=== PATIENT | male | born 1965 | race Caucasian/White ===

== ENCOUNTER 2019-01-12 10:17 | Observation (INO) ==
[2019-01-12] MEDS ORDERED: Isovue-370 500 ML BOTTLE IVP ONE (10:54)
[2019-01-12] MEDS ORDERED: *HR* FentaNYL (PF) 100 MCG/2 ML VIAL IVP ONE (10:55)
[2019-01-12] MEDS ORDERED: Ondansetron 4 MG/2 ML VIAL IVP ONE (10:55)
[2019-01-12 11:38] LABS: Basophils # 0.1 K/mcL (0.0-0.2); Basophils % 1.1 %; Eosinophils # 0.3 K/mcL (0.0-0.6); Eosinophils % 3.9 %; Hematocrit 50.1 % (37.5-50.1); Hemoglobin 15.9 g/dL (12.9-16.9); Immature Granulocytes % 0.3 % (0-4); Lymphocytes # 2.1 K/mcL (0.6-4.6); Lymphocytes % 33.4 %; Mean Corpuscular HGB Conc 31.7 g/dL (31.6-35.5); Mean Corpuscular Hemoglobin 27.8 pg (28.0-33.3); Mean Corpuscular Volume 87.6 fL (83.0-100.0); Mean Platelet Volume 11.1 fL (9.4-12.4); Monocytes # 0.7 K/mcL (0.0-1.3); Monocytes % 11.6 %; Neutrophils # 3.2 K/mcL (1.6-8.9); Platelet Count 154 K/mcL (140-400); Red Blood Count 5.72 M/mcL (4.19-5.50); Red Cell Distribution Width 14.5 % (11.5-14.5); Segmented Neutrophils % 49.7 %
[2019-01-12 12:00] LABS: Alanine Aminotransferase 80 Units/L (7-52); Alkaline Phosphatase 132 Units/L (34-104); Aspartate Amino Transferase 109 Units/L (13-39); BUN/Creatinine Ratio 14 (6-26); Bilirubin,Direct 0.1 mg/dL (0.0-0.2); Bilirubin,Indirect 0.3 mg/dL (0.0-1.2); Bilirubin,Total 0.4 mg/dL (0.3-1.0); Blood Urea Nitrogen 11 mg/dL (6-20); Calcium 9.4 mg/dL (8.6-10.3); Carbon Dioxide 29 mEq/L (23-29); Chloride 100 mEq/L (98-107); Glucose 98 mg/dL (70-105); Osmolality,Calculated 277 (280-300); Potassium 4.8 mEq/L (3.5-5.1); Sodium 134 mEq/L (136-145); Troponin I < 0.03 ng/mL (< 0.04); eGFR For Non-African Americans > 60 (> 60)
[2019-01-12] MEDS ORDERED: Ketorolac 15 MG/ML VIAL IVP ONE ×2 (12:01→16:48)
[2019-01-12 12:28] LABS: Lipase 19 Units/L (11-82)
[2019-01-12 12:57] LABS: Bilirubin,Urine Negative (Negative); Blood,Urine Negative (Negative); Clarity,Urine Clear (Clear); Color,Urine Yellow (Yellow); Glucose,Urine (UA) Normal (Normal); Ketones,Urine Negative (Negative); Leukocyte Esterase,Urine Negative (Negative); Nitrite,Urine Negative (Negative); PH,Urine 6.5 pH Units (5.0-8.0); Protein,Urine Negative (Neg-Trace); Specific Gravity,Urine < 1.005 (1.010-1.025); Urobilinogen,Urine Normal (Normal)
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
[2019-01-12] MEDS ORDERED: Ondansetron 4 MG/2 ML VIAL IVP PRN (16:48)
[2019-01-12] MEDS ORDERED: cefOXitin 2,000 MG in Water for inj. (sterile) 20 ML 20 ML IVP SCH (17:00)
[2019-01-12] MEDS: 0.9 % Sodium Chloride 1,000 ML IVC SCH (17:19)
[2019-01-12] MEDS: *HR* Heparin 5,000 UNIT/ML VIAL SQ SCH (17:20)
--- NOTE | 2019-01-12 17:40 | Emergency Department Note ---
Disposition Clinical Impression: Acute cholecystitis without calculus Disposition: Admitted As Inpatient Condition: Fair Time of Disposition: 16:30 General Adult HPI - General Chief complaint: ED Abdominal Pain Stated complaint: abd pain Time Seen by Provider: 01/12/19 10:25 Source: patient, family Limitations: no limitations Nursing Notes Reviewed: Yes Vital Signs Reviewed: Yes - History of Present Illness HPI Narrative: 53-year-old male presents emergency Department with concerns of pain in the right upper quadrant. Patient states pain woke him from sleep at 3 AM and has persisted since that time. Patient denies fever, trauma, illicit drug use. He has a history of IV drug use and hepatitis C. The pain is described as sharp, aching in the right upper quadrant that does not radiate. He feels like there is a "large ball in his right upper quadrant". Pain Scale: 0 - Related Data Home Medications Medication Instructions Recorded Confirmed Buprenorphine HCl/Naloxone HCl 1 each SL DAILY 01/12/19 01/12/19 [Suboxone 8 mg-2 mg Sl Film] Allergies Allergy/AdvReac Type Severity Reaction Status Date / Time No Known Allergies Allergy Verified 02/26/18 18:49 All systems ED: reviewed and negative except as stated. Review of Systems: As Per HPI Past Medical History - Past Medical History Attestation: Yes The following information was validated with the patient. Source: patient Medical history: Reports: hepatitis Surgical history: Reports: other Psychiatric history: Reports: anxiety, depression - Social History Smoking Status: Current every day smoker Smokeless Tobacco Status: No Alcohol use: Reports: none Drug use: Reports: marijuana, other Physical Exam General: Alert and in no acute distress Skin: Warm, dry, intact Head: Normocephalic and atraumatic Neck: Supple, trachea midline and no tenderness Cardiovascular: RRR, no murmur, normal perfusion Respiratory: CTAB, no wheezing, cough, or respiratory distress Musculoskeletal: Normal strength, no tenderness, swelling or deformity GI: Soft, tenderness to palpation of the right upper quadrant without evidence of rigidity, guarding, rebound. nondistended. Bowel sounds present Neuro: A&O to person, place, time and situation. No focal deficits noted on exam Psychiatric: cooperative and appropriate mood and affect. - General Limitations: no limitations General appearance: alert, in no apparent distress Course Vital Signs Temperature 97.6 F 01/12/19 10:24 Pulse Rate 59 01/12/19 10:24 Respiratory Rate 14 01/12/19 10:24 Blood Pressure 137/90 01/12/19 10:24 O2 Sat by Pulse Oximetry 97 01/12/19 10:24 Temperature 97.6 F 01/12/19 10:47 Pulse Rate 58 01/12/19 15:02 Respiratory Rate 16 01/12/19 16:35 Blood Pressure 105/54 01/12/19 16:35 O2 Sat by Pulse Oximetry 95 01/12/19 15:02 Oxygen Delivery Oxygen Delivery Room Air Medical Decision Making - MDM Narrative Medical decision making narrative: CT showed significant thickening of the gallbladder wall and dilatation of the intrahepatic and extrahepatic biliary ducts. There is also question lesion of the pancreatic head which was concerning for malignancy. Patient was informed of the CT results. I contacted the surgeon, Dr. Aguila who evaluated the patient at bedside. Dr. Aguila recommended that symptoms are likely secondary to acute cholecystitis and he would require surgery. Patient drank coffee in the emergency department despite being told to be nothing by mouth. He will likely require surgery in the a.m. - Medical Records Medical records reviewed: Yes I reviewed the patient's medical records. - Lab Data Lab results reviewed: Yes I reviewed the patient's lab results. Result diagrams: 01/12/19 11:27 01/12/19 11:27 Lab Results 01/12/19 01/12/19 01/12/19 Range/Units 11:27 11:27 11:27 WBC 6.4 (4.3-11.1) K/mcL RBC 5.72 H (4.19-5.50) M/mcL Hgb 15.9 (12.9-16.9) g/dL Hct 50.1 (37.5-50.1) % MCV 87.6 (83.0-100.0) fL MCH 27.8 L (28.0-33.3) pg MCHC 31.7 (31.6-35.5) g/dL RDW 14.5 (11.5-14.5) % Plt Count 154 (140-400) K/mcL MPV 11.1 (9.4-12.4) fL Immature Gran % 0.3 (0-4) % Seg Neutrophils % 49.7 % Lymphocytes % 33.4 % Monocytes % 11.6 % Eosinophils % 3.9 % Basophils % 1.1 % Neutrophils # 3.2 (1.6-8.9) K/mcL Lymphocytes # 2.1 (0.6-4.6) K/mcL Monocytes # 0.7 (0.0-1.3) K/mcL Eosinophils # 0.3 (0.0-0.6) K/mcL Basophils # 0.1 (0.0-0.2) K/mcL Sodium 134 L (136-145) mEq/L Potassium 4.8 (3.5-5.1) mEq/L Chloride 100 (98-107) mEq/L Carbon Dioxide 29 (23-29) mEq/L BUN 11 (6-20) mg/dL Creatinine 0.78 (0.70-1.30) mg/dL Est GFR ( Amer) > 60 (> 60) Est GFR (Non-Af Amer) > 60 (> 60) BUN/Creatinine Ratio 14 (6-26) Glucose 98 (70-105) mg/dL Calculated Osmolality 277 L (280-300) Lactic Acid 0.7 (0.5-2.2) mmol/L Calcium 9.4 (8.6-10.3) mg/dL Total Bilirubin 0.4 (0.3-1.0) mg/dL Direct Bilirubin 0.1 (0.0-0.2) mg/dL Indirect Bilirubin 0.3 (0.0-1.2) mg/dL AST 109 H (13-39) Units/L ALT 80 H (7-52) Units/L Alkaline Phosphatase 132 H (34-104) Units/L Troponin I < 0.03 (< 0.04) ng/mL Serum Total Protein 8.0 (6.4-8.9) g/dL Albumin 4.0 (3.5-5.7) g/dL Globulin 4.0 H (2.4-3.5) g/dL Albumin/Globulin Ratio 1.0 L (1.1-2.2) Lipase 19 (11-82) Units/L Urine Color (Yellow) Urine Clarity (Clear) Urine pH (5.0-8.0) pH Units Ur Specific [place] (1.010-1.025) Urine Protein (Neg-Trace) mg/dL Urine Glucose (UA) (Normal) mg/dL Urine Ketones (Negative) mg/dL Urine Blood (Negative) Urine Nitrite (Negative) Urine Bilirubin (Negative) Urine Urobilinogen (Normal) mg/dL Ur Leukocyte Esterase (Negative) Ur Culture Indicated? (NO) 01/12/19 Range/Units 12:45 WBC (4.3-11.1) K/mcL RBC (4.19-5.50) M/mcL Hgb (12.9-16.9) g/dL Hct (37.5-50.1) % MCV (83.0-100.0) fL MCH (28.0-33.3) pg MCHC (31.6-35.5) g/dL RDW (11.5-14.5) % Plt Count (140-400) K/mcL MPV (9.4-12.4) fL Immature Gran % (0-4) % Seg Neutrophils % % Lymphocytes % % Monocytes % % Eosinophils % % Basophils % % Neutrophils # (1.6-8.9) K/mcL Lymphocytes # (0.6-4.6) K/mcL Monocytes # (0.0-1.3) K/mcL Eosinophils # (0.0-0.6) K/mcL Basophils # (0.0-0.2) K/mcL Sodium (136-145) mEq/L Potassium (3.5-5.1) mEq/L Chloride (98-107) mEq/L Carbon Dioxide (23-29) mEq/L BUN (6-20) mg/dL Creatinine (0.70-1.30) mg/dL Est GFR ( Amer) (> 60) Est GFR (Non-Af Amer) (> 60) BUN/Creatinine Ratio (6-26) Glucose (70-105) mg/dL Calculated Osmolality (280-300) Lactic Acid (0.5-2.2) mmol/L Calcium (8.6-10.3) mg/dL Total Bilirubin (0.3-1.0) mg/dL Direct Bilirubin (0.0-0.2) mg/dL Indirect Bilirubin (0.0-1.2) mg/dL AST (13-39) Units/L ALT (7-52) Units/L Alkaline Phosphatase (34-104) Units/L Troponin I (< 0.04) ng/mL Serum Total Protein (6.4-8.9) g/dL Albumin (3.5-5.7) g/dL Globulin (2.4-3.5) g/dL Albumin/Globulin Ratio (1.1-2.2) Lipase (11-82) Units/L Urine Color Yellow (Yellow) Urine Clarity Clear (Clear) Urine pH 6.5 (5.0-8.0) pH Units Ur Specific [place] < 1.005 L (1.010-1.025) Urine Protein Negative (Neg-Trace) mg/dL Urine Glucose (UA) Normal (Normal) mg/dL Urine Ketones Negative (Negative) mg/dL Urine Blood Negative (Negative) Urine Nitrite Negative (Negative) Urine Bilirubin Negative (Negative) Urine Urobilinogen Normal (Normal) mg/dL Ur Leukocyte Esterase Negative (Negative) Ur Culture Indicated? NO (NO) - Radiology Data Radiology results reviewed: Yes I reviewed the patient's radiology results.
[2019-01-12] MEDS ORDERED: Nicotine 21 MG PATCH.TD24 TD SCH (20:00)
[2019-01-13] MEDS: cefOXitin 2,000 MG in Water for inj. (sterile) 20 ML 20 ML IVP SCH ×3 (00:33→23:04)
[2019-01-13] MEDS: Ketorolac 15 MG/ML VIAL IVP PRN ×2 (00:33→07:25)
[2019-01-13] MEDS: 0.9 % Sodium Chloride 1,000 ML IVC SCH ×3 (00:34→18:49)
[2019-01-13] MEDS: *HR* Heparin 5,000 UNIT/ML VIAL SQ SCH (05:10)
--- NOTE | 2019-01-13 08:55 | AcuteCareSurgery Progress Note ---
Date of Encounter: 01/13/19 Time of Encounter: 07:30 - Assessment and Plan (1) Acute cholecystitis without calculus Current Visit: Yes Status: Acute Pt diagnosis of acalculus colecystitis with hepatitis and pancreatic duct abnormality is discussed. Laparoscopic Cholecystectomy with IOC and liver biopsy is recommended. Procedure for the surgery, risks and benefits are discussed in detail. Possible known complications for Laparoscopic Cholecystectomy are bleeding, infection, bile duct injury, bile leak, small intestine or stomach injury, stroke, DVT/PE, TX or . Pt understands these risks, which in this case are . Pt wishes to proceed with surgery as soon as possible. Informed consent is obtained. Pt condition is stable. Surgery is scheduled. (2) Narcotic abuse, episodic Current Visit: Yes Status: Acute (3) Abnormality of pancreatic duct Current Visit: Yes Status: Acute Will obtain IOC. (4) Hepatitis C Current Visit: Yes Status: Acute Will obtain liver biospy. Qualifiers: Viral hepatitis chronicity: chronic Hepatic coma status: without hepatic coma Qualified Code(s): B18.2 - Chronic viral hepatitis C Subjective Patient reports: no new complaints, feels better, still having pain, flatus, no bowel movement, nausea Narrative: NPO Objective Vital Signs - Last 8 Hours Temp Pulse Resp BP Pulse Ox 01/13/19 05:30 97.8 F 51 15 108/69 93 Intake and Output 01/12/19 01/13/19 01/13/19 23:59 07:59 15:59 Intake Total 0 / 0 2019 Output Total 0 / 0 0 / 0 Balance 0 / 0 2019 Intake: IV Fluids 2019 0.9 % Sodium Chloride 1,000 ML 1999 / 1999 @ 125 mls/hr IVC .Q8H [facility] Rx#: [id number] Mefoxin 2,000 MG In Water for inj. (sterile) 20 ML @ 300 mls/ hr IVP Q8HR [facility] Rx#:[id number] Oral 0 / 0 0 / 0 Output: Urine 0 / 0 0 / 0 Other: Blood Glucose* 85 79 - General physical appearance no distress, moderate pain (controlled) - Eyes PERRL, normal ocular movement - ENT normal mucosa, no congestion - Neck Neck exam: trachea midline, no lymphadectomy, no venous distension - Respiratory normal respiratory effort, clear to auscultation - Cardiovascular Cardiovascular exam: Present: RRR. Absent: murmurs - Abdomen Abdomen: Present: bowel sounds present, soft, tender Abdominal Tenderness: RUQ - Genitourinary normal penis with no external lesions - Integumentary no rash, other (no jaundice) - Neurologic CN 2-12 grossly intact, normal coordination - Musculoskeletal normal posture - Psychiatric oriented to time, oriented to person, oriented to place - Labs 01/12/19 11:27 01/12/19 11:27 Diabetes panel 01/12/19 Range/Units 11:27 Sodium 134 L (136-145) mEq/L Potassium 4.8 (3.5-5.1) mEq/L Chloride 100 (98-107) mEq/L Carbon Dioxide 29 (23-29) mEq/L BUN 11 (6-20) mg/dL Creatinine 0.78 (0.70-1.30) mg/dL Glucose 98 (70-105) mg/dL Calcium 9.4 (8.6-10.3) mg/dL AST 109 H (13-39) Units/L ALT 80 H (7-52) Units/L Alkaline Phosphatase 132 H (34-104) Units/L Albumin 4.0 (3.5-5.7) g/dL Calcium panel 01/12/19 Range/Units 11:27 Calcium 9.4 (8.6-10.3) mg/dL Albumin 4.0 (3.5-5.7) g/dL Pituitary panel 01/12/19 Range/Units 11:27 Sodium 134 L (136-145) mEq/L Potassium 4.8 (3.5-5.1) mEq/L Chloride 100 (98-107) mEq/L Carbon Dioxide 29 (23-29) mEq/L BUN 11 (6-20) mg/dL Creatinine 0.78 (0.70-1.30) mg/dL Glucose 98 (70-105) mg/dL Calcium 9.4 (8.6-10.3) mg/dL Adrenal panel 01/12/19 Range/Units 11:27 Sodium 134 L (136-145) mEq/L Potassium 4.8 (3.5-5.1) mEq/L Chloride 100 (98-107) mEq/L Carbon Dioxide 29 (23-29) mEq/L BUN 11 (6-20) mg/dL Creatinine 0.78 (0.70-1.30) mg/dL Glucose 98 (70-105) mg/dL Calcium 9.4 (8.6-10.3) mg/dL Total Bilirubin 0.4 (0.3-1.0) mg/dL AST 109 H (13-39) Units/L ALT 80 H (7-52) Units/L Alkaline Phosphatase 132 H (34-104) Units/L Albumin 4.0 (3.5-5.7) g/dL Consult Discharge Plan - Plan Referrals: Anmol Saeed MD [Primary Care Provider] -
--- NOTE | 2019-01-13 11:48 | Anesthesia Evaluation PreOp ---
Date of Encounter: 01/13/19 Time of Encounter: 15:09 - Past History Planned Operation: Laparoscopic Cholecystectomy Cardiac History: Denies any Significant Hx Pulmonary History: Smoker (20+ years) FLIGHT OPERATIONS SPECIALIST History: Denies Any Significant HX Other Medical History: Hepatic (hepatitis C), Other (anxiety/depression) Anesthesia History: No Prior Anesthetic Complications, Past Anesthesia Alcohol Use: none Drug use: marijuana, prescription drug abuse (H/O pain pill abuse--on suboxone, last taken 01/12/2019) Medications and Allergies Buprenorphine HCl/Naloxone HCl [Suboxone 8 mg-2 mg Sl Film] 1 each SL DAILY 01/12/19 [History] Allergy/AdvReac Type Severity Reaction Status Date / Time No Known Allergies Allergy Verified 02/26/18 18:49 - Meds/Allergy Pre-op Review Medications Reviewed: Yes Allergies Reviewed: Yes Beta Blockers on Current Med List: No Anesthesia Results - Labs 01/12/19 11:27 01/12/19 11:27 Anesthesia Exam Vital Signs/O2 Sat/Glucose, Most Recent Temp Pulse Resp BP Pulse Ox 97.4 F L 50 16 108/63 95 01/13/19 10:58 01/13/19 10:58 01/13/19 10:58 01/13/19 10:58 01/13/19 10:58 Blood Glucose* 83 Height: 5'6''/1.68m Weight: 141 lbs/64 kg NPO (# of Hours): 8 Pain Scale: 0 Pain Scale Used: Numeric (1 - 10) - HEENT Pupil (Motor): EOMI Mallampati: II Teeth: Edentulous Oral Opening: Greater than 3 - FLIGHT OPERATIONS SPECIALIST LOC: Oriented FLIGHT OPERATIONS SPECIALIST Motor: Normal RUE, Normal LUE, Normal RLE, Normal LLE, Normal Face FLIGHT OPERATIONS SPECIALIST Sensory: Normal: RUE, LUE, RLE, LLE, Face - Cardiac Rhythm: Regular Murmur: None - Pulmonary Breath Sounds: bilateral Clear Respiratory Effort: Symmetrical Anesthesia Assess/Plan ASA Score: 2 Level of consciousness: Cooperative, Oriented, Tranquil Anesthetic Plan: General Monitoring Plan: Standard Monitors Recovery Plan: PACU
[2019-01-13] MEDS ORDERED: *HR* FentaNYL (PF) 100 MCG/2 ML VIAL ONE (14:26)
[2019-01-13] MEDS ORDERED: *HR* Propofol 200 MG/20 ML VIAL IVP ONE (14:26)
[2019-01-13] MEDS ORDERED: Ondansetron 4 MG/2 ML VIAL ONE (14:27)
[2019-01-13] MEDS ORDERED: Lidocaine -MPF 2% 2 ML VIAL ONE (14:27)
[2019-01-13] MEDS ORDERED: Dexamethasone 4 MG/ML VIAL ONE (14:27)
[2019-01-13] MEDS ORDERED: Lidocaine -MPF 4% 5 ML AMPUL ONE (14:27)
[2019-01-13] MEDS ORDERED: *HR* Cisatracurium 10 MG/5 ML VIAL IV ONE ×2 (14:28→16:03)
[2019-01-13] MEDS ORDERED: Acetaminophen IV 1,000 MG/100 ML INFUS..BTL ONE (14:28)
[2019-01-13] MEDS ORDERED: Albuterol 2.5 MG/3 ML NEBULIZER ONE (15:00)
[2019-01-13] MEDS ORDERED: *HR* HYDROmorphone (PF) 1 MG/ML SYRINGE IVP PRN (15:12)
[2019-01-13] MEDS ORDERED: *HR* OxyCODONE Immed Rel 5 MG TABLET PO PRN (15:12)
[2019-01-13] MEDS ORDERED: Bupivacaine/EPI 1:200k 0.5%PF 30 ML VIAL ONE (15:12)
[2019-01-13] MEDS ORDERED: Isovue-300 50 ML VIAL ONE (15:12)
[2019-01-13] MEDS ORDERED: *HR* Midazolam HCl 2 MG/2 ML VIAL ONE (15:27)
[2019-01-13] MEDS ORDERED: *HR* Succinylcholine 200 MG/10 ML VIAL IVP ONE (15:31)
--- NOTE | 2019-01-13 17:42 | Operative Note ---
Date of procedure: 01/13/19 Pre-op diagnosis: acute acalculus cholecystitis, hepatitis and abnormal pancreatic duct Post-op diagnosis: same Procedure: Laparoscopic cholecystectomy with extensive lysis of adhesions, intraoperative cholangiogram and wedge liver biopsy Complications: None Anesthesia: GETA Surgeon: Shayne Sorensen Was there an timber management assistant present: No Estimated blood loss (cc): 25 Specimen: Gallbladder with contents and liver wedge Condition: stable Disposition: PACU Procedure in Detail: This 53 year-old male was taken to the operating room and placed in the supine position. The anterior abdominal wall is prepped and draped in the usual sterile fashion. A 1-2 cm curvilinear incision is made in the infraumbilical area and subcutaneous tissue was dissected down to anterior rectus fascia. Fascia is grasped with a Jorge clamp, stay sutures were placed in the fascia is divided. Posterior rectus fascia and peritoneum were elevated and divided in the same manner. A Catrachita port is inserted. Exploration of the intraabdominal cavity reveals extensive intraoperative adhesions from previous exploratory laparotomy for penetrating abdominal injury. Under direct visualization after the injection of 0.5% Marcaine the lateral most right subcostal port was inserted. Careful and meticulous lysis of intraabdominal adhesions is carried out both sharply and bluntly. The adhesions consist of small bowel and colon to abdominal wall. This process of adhesiolysis is time consuming and technically demanding. When adhesiolysis is satisfactory two additional 5 mm ports are inserted in the right subcostal space under direct visualization. The patient is placed in reverse Trendelenburg position and rotated to the left. The gallbladder is grasped and retracted in cephalad direction. It is also grasped and retracted in the lateral direction. The cystic duct was carefully identified circumferentially dissected doubly clipped near the neck of the gallbladder. A cholecystodochotomy is made. The cystic artery is carefully identified and circumferentially dissected and divided between clips. A cholangiocatheter is place in the cystic duct. A cholangiogram is obtained. There is easy filling of the CBD, common hepatic duct and hepatic radicals. Easy filling of the duodenum is appreciated. The distal CBD is abdnormal but, not obstructing. When the cholangiocatheter is completed, the catheter is removed. The cystic duct is doubly clipped and divided between clips. The gallbladder is dissected off the liver bed using electrocautery. Hemostasis was perfected using electrocautery. The gallbladder is removed from the intra-abdominal cavity using an Endo Catch bag. Next, a wedge biopsy of the liver is taken sharply. Hemostasis is perfected using electrocautery. Copious irrigation is carried out in the intra-abdominal cavity, Wan's pouch and the gallbladder fossa. The pneumoperitoneum was allowed to escape under direct visualization. The ports were removed also under direct visualization. The fascia at the infraumbilical incision is closed using 0 Vicryl sutures. All skin incisions are closed using 4-0 Monocryl subcuticular stitches. Steri-Strips are placed. Sterile dressing is placed. Patient tolerated procedure well was taken to the PACU in good condition.
[2019-01-13] MEDS ORDERED: Ondansetron 4 MG/2 ML VIAL IVP PRN (18:15)
[2019-01-13] MEDS ORDERED: Nicotine 21 MG PATCH.TD24 TD SCH (20:00)
[2019-01-13] MEDS: *HR* OxyCODONE/APAP 5/325 TABLET PO PRN (20:34)
[2019-01-14] MEDS: 0.9 % Sodium Chloride 1,000 ML IVC SCH (03:23)
[2019-01-14] MEDS: *HR* OxyCODONE/APAP 5/325 TABLET PO PRN ×2 (05:06→09:12)
[2019-01-14] MEDS ORDERED: *HR* Heparin 5,000 UNIT/ML VIAL SQ SCH (06:00)
[2019-01-14 06:43] VITALS: BP 125/80
[2019-01-14] MEDS: cefOXitin 2,000 MG in Water for inj. (sterile) 20 ML 20 ML IVP SCH (07:58)
--- NOTE | 2019-01-14 09:19 | Discharge Summary ---
Orders not resulted at time of discharge: Pending orders 01/13/19 17:17 Surgical Pathology [PTH] Routine Date of Encounter: 01/14/19 Time of Encounter: 08:00 - Discharge Diagnosis (1) Acute cholecystitis without calculus Priority: Primary Status: Acute Comments: s/p lap ramírez with IOC and liver biospy (2) Narcotic abuse, episodic Priority: Secondary Status: Acute (3) Abnormality of pancreatic duct Priority: Secondary Status: Acute Comments: IOC reveals possible filling defect in CBD. Pt is to follow-up for outpatient MRCP. (4) Hepatitis C Priority: Secondary Status: Acute Qualifiers: Viral hepatitis chronicity: chronic Hepatic coma status: without hepatic coma Qualified Code(s): B18.2 - Chronic viral hepatitis C General Surgery Exam Initial Vital Signs Temp Pulse Resp BP Pulse Ox 97.6 F 59 14 137/90 97 01/12/19 10:24 01/12/19 10:24 01/12/19 10:24 01/12/19 10:24 01/12/19 10:24 - General physical appearance no distress, no pain - Eyes PERRL. negative: icteric - ENT normal mucosa, no congestion - Neck no lymphadectomy, no venous distension - Respiratory normal respiratory effort, clear to auscultation - Cardiovascular Cardiovascular exam: Present: RRR. Absent: murmurs - Abdomen Abdomen general surgery: Present: bowel sounds present, soft, tender (post-op) - Incision Incision: Present: clean and dry, intact - Integumentary Integumentary general surgery: Present: warm and dry - Neurologic Present: CN 2-12 grossly intact, normal coordination - Musculoskeletal Present: normal posture - Psychiatric Psychiatric general surgery: Present: A&Ox3, appropriate - Hospital Course Hospital course: Mr. Alarcon is a 53 year old male - Time Spent with Patient Total time spent providing and/or coordinating discharge services: - Discharge Medications Prescriptions: Continued Buprenorphine HCl/Naloxone HCl [Suboxone 8 mg-2 mg Sl Film] 1 each SL DAILY Home Medications: Buprenorphine HCl/Naloxone HCl [Suboxone 8 mg-2 mg Sl Film] 1 each SL DAILY 01/12/19 [History] Allergies/Adverse Reactions: Allergy/AdvReac Type Severity Reaction Status Date / Time No Known Allergies Allergy Verified 02/26/18 18:49 Date of admission: 01/12/19 16:07 Primary care physician: Anmol Saeed MD Discharging clinician: Shayne Sorensen (F/U with [facility] in 4 weeks) Anticipated date of discharge: 01/14/19 Labs on day of discharge: Labs from last 24 hours 01/13/19 11:00 POC Glucose 83 - Impressions ITS Impressions Abdomen/Pelvis CT 01/12/19 10:54 IMPRESSION: 1. Mild gallbladder distention and diffuse edematous gallbladder wall thickening potentially due to acute cholecystitis given suggestion of hyperenhancement of the cystic duct. No radiopaque gallstones are identified. Consider further evaluation with sonography or a nuclear medicine hepatobiliary scan. 2. Mild intrahepatic and extrahepatic biliary dilation and mild dilation of the main pancreatic duct. This may be related to a subtle hypodense lesion in the pancreatic head, potentially malignant. Recommend further evaluation with pancreas protocol CT (preferred) or MRI on a nonemergent basis. 3. Prominent urinary bladder wall thickening likely due in part to incomplete distention and chronic outlet obstruction. However, superimposed cystitis is not excluded. D/ / Johnathon Mooney MD / Johnathon Mooney MD Interpreting Provider: Johnathon Mooney MD Cholangiogram,Operative 01/13/19 00:00 IMPRESSION: There is a suspected filling defect within the common duct, concerning for choledocholithiasis. Further evaluation with MRCP or ERCP recommended. D/ / Parminder Haynes MD / Parminder Haynes MD Interpreting Provider: Parminder Haynes MD - Patient Status Disposition: Home, Self-Care Condition: Good Functional capacity at discharge: independent ambulation Overall status at discharge: patient is back to baseline - Discharge Instructions Follow Up With: Anmlo Saeed MD [Primary Care Provider] - Shayne Blake [Partnered Physician] - Forms: ED Satisfaction Letter, Work/School Release Additional Instructions: Pt will need outpatient MRCP - Diet and Activity Activity: other (No heavy lifting >25 lbs) Diet: advance to your usual diet
== END 2019-01-14 10:11 | disposition home or self-care (01) ==
LOC: 3ANU 10:17 → EMEROOARM 10:17 → 3ANU 16:40
PROVIDERS: ADMIT Surgery; ATTEND Surgery

== ENCOUNTER 2019-03-31 14:07 | Inpatient (IN) ==
[2019-03-31] MEDS ORDERED: cefTRIAXone 1,000 MG in Water for inj. (sterile) 10 ML IVP ONE (16:19)
[2019-03-31 17:10] LABS: Basophils % 0.4 %; Eosinophils # 0.2 K/mcL (0.0-0.6); Eosinophils % 1.9 %; Hematocrit 45.5 % (37.5-50.1); Hemoglobin 14.9 g/dL (12.9-16.9); Immature Granulocytes % 0.4 % (0-4); Lymphocytes % 23.7 %; Mean Corpuscular HGB Conc 32.7 g/dL (31.6-35.5); Mean Corpuscular Hemoglobin 28.4 pg (28.0-33.3); Mean Corpuscular Volume 86.7 fL (83.0-100.0); Mean Platelet Volume 10.4 fL (9.4-12.4); Monocytes # 0.8 K/mcL (0.0-1.3); Monocytes % 9.2 %; Neutrophils # 5.4 K/mcL (1.6-8.9); Platelet Count 227 K/mcL (140-400); Red Blood Count 5.25 M/mcL (4.19-5.50); Red Cell Distribution Width 12.7 % (11.5-14.5); Segmented Neutrophils % 64.4 %; White Blood Count 8.4 K/mcL (4.3-11.1)
[2019-03-31] MEDS ORDERED: Ketorolac 30 MG/ML VIAL IVP ONE (17:10)
[2019-03-31 17:28] LABS: BUN/Creatinine Ratio 11 (6-26); Blood Urea Nitrogen 8 mg/dL (6-20); Calcium 9.3 mg/dL (8.6-10.3); Carbon Dioxide 28 mEq/L (23-29); Chloride 99 mEq/L (98-107); Glucose 99 mg/dL (70-105); Osmolality,Calculated 268 (280-300); Sodium 130 mEq/L (136-145); eGFR For African Americans > 60 (> 60); eGFR For Non-African Americans > 60 (> 60)
[2019-03-31] MEDS ORDERED: Nicotine 21 MG PATCH.TD24 TD ONE (18:11)
[2019-03-31] MEDS ORDERED: Naloxone 0.4 MG/ML INJ IVP PRN (21:32)
[2019-03-31] MEDS ORDERED: 0.9 % Sodium Chloride 1,000 ML IVC SCH (21:45)
[2019-03-31] MEDS: Ketorolac 15 MG/ML VIAL IVP PRN (23:56)
[2019-04-01 06:18] LABS: BUN/Creatinine Ratio 16 (6-26); Blood Urea Nitrogen 10 mg/dL (6-20); Calcium 8.9 mg/dL (8.6-10.3); Carbon Dioxide 26 mEq/L (23-29); Chloride 103 mEq/L (98-107); Glucose 102 mg/dL (70-105); Osmolality,Calculated 281 (280-300); Potassium 3.9 mEq/L (3.5-5.1); Sodium 136 mEq/L (136-145); eGFR For African Americans > 60 (> 60); eGFR For Non-African Americans > 60 (> 60)
[2019-04-01 06:33] LABS: Basophils # 0.1 K/mcL (0.0-0.2); Basophils % 0.8 %; Eosinophils # 0.3 K/mcL (0.0-0.6); Eosinophils % 4.4 %; Hematocrit 42.5 % (37.5-50.1); Immature Granulocytes % 0.3 % (0-4); Lymphocytes # 1.9 K/mcL (0.6-4.6); Lymphocytes % 29.3 %; Mean Corpuscular HGB Conc 32.9 g/dL (31.6-35.5); Mean Corpuscular Hemoglobin 28.1 pg (28.0-33.3); Mean Corpuscular Volume 85.2 fL (83.0-100.0); Mean Platelet Volume 10.8 fL (9.4-12.4); Monocytes # 0.9 K/mcL (0.0-1.3); Neutrophils # 3.5 K/mcL (1.6-8.9); Platelet Count 229 K/mcL (140-400); Red Blood Count 4.99 M/mcL (4.19-5.50); Red Cell Distribution Width 12.7 % (11.5-14.5); Segmented Neutrophils % 52.2 %; White Blood Count 6.6 K/mcL (4.3-11.1)
[2019-04-01] MEDS: Ketorolac 15 MG/ML VIAL IVP PRN ×2 (08:42→21:11)
[2019-04-01] MEDS ORDERED: Nicotine 21 MG PATCH.TD24 TD SCH (09:00)
[2019-04-01] MEDS ORDERED: cefTRIAXone 1,000 MG in Water for inj. (sterile) 10 ML IVP SCH (09:00)
[2019-04-01] MEDS ORDERED: CefTRIAXone 1,000 MG VIAL IM ONE (09:28)
[2019-04-01] MEDS ORDERED: cefTRIAXone 1,000 MG in Water for inj. (sterile) 10 ML IVP ONE (10:23)
[2019-04-01 10:26] LABS: C-Reactive Protein 46 mg/L (Less than 10)
[2019-04-01] MEDS ORDERED: *HR* Buprenorphine HCl 8 MG TAB.SUBL SL SCH (10:32)
[2019-04-01] MEDS ORDERED: NON-FORMULARY MEDICATION 1 EACH EACH (Buprenorphine Hcl/Naloxone Hcl [Suboxone 8 Mg-2 Mg S SL SCH (11:15)
[2019-04-01] MEDS ORDERED: *HR* FentaNYL (PF) 100 MCG/2 ML VIAL ONE (16:37)
[2019-04-01] MEDS ORDERED: *HR* Midazolam HCl 2 MG/2 ML VIAL ONE (16:37)
[2019-04-01] MEDS ORDERED: *HR* Propofol 200 MG/20 ML VIAL IVP ONE (16:37)
[2019-04-01] MEDS ORDERED: Ondansetron 4 MG/2 ML VIAL ONE (16:49)
[2019-04-01] MEDS ORDERED: Dexamethasone 4 MG/ML VIAL ONE (16:49)
[2019-04-01] MEDS ORDERED: Bupivacaine/EPI 1:200k 0.5%PF 30 ML VIAL ONE (16:49)
[2019-04-01] MEDS ORDERED: Ketorolac 30 MG/ML VIAL ONE (17:30)
[2019-04-01] MEDS ORDERED: Naloxone 0.4 MG/ML INJ IVP PRN ×2 (17:40)
[2019-04-01] MEDS ORDERED: Ondansetron 4 MG/2 ML VIAL IVP PRN (17:40)
[2019-04-01] MEDS ORDERED: Temazepam 15 MG CAPSULE PO PRN (17:40)
[2019-04-01] MEDS ORDERED: *HR* Promethazine 25 MG/ML VIAL IVP PRN (17:40)
[2019-04-01] MEDS ORDERED: MOM Conc 10 ML UD.LIQ PO PRN (17:40)
[2019-04-01] MEDS ORDERED: Sennosides 8.6 MG TABLET PO PRN (17:40)
[2019-04-01] MEDS ORDERED: *HR* Heparin 5,000 UNIT/ML VIAL SQ SCH (18:00)
[2019-04-01] MEDS: *HR* Heparin 5,000 UNIT/ML VIAL SQ SCH (20:42)
[2019-04-01] MEDS: Ringers Solution, Lactated 1,000 ML IVC SCH (21:06)
[2019-04-01] MEDS: Gabapentin 300 MG CAPSULE PO SCH (21:10)
[2019-04-02] MEDS: *HR* Heparin 5,000 UNIT/ML VIAL SQ SCH ×2 (06:06→16:39)
[2019-04-02] MEDS: Ketorolac 15 MG/ML VIAL IVP PRN ×2 (06:11→21:24)
[2019-04-02] MEDS ORDERED: cefTRIAXone 2,000 MG in Water for inj. (sterile) 20 ML IVP SCH (09:00)
[2019-04-02] MEDS: cefTRIAXone 2,000 MG in Water for inj. (sterile) 20 ML IVP SCH (09:44)
[2019-04-02] MEDS: Nicotine 21 MG PATCH.TD24 TD SCH (09:45)
[2019-04-02] MEDS: Gabapentin 300 MG CAPSULE PO SCH ×3 (09:45→21:24)
[2019-04-02] MEDS: Ascorbic Acid 500 MG TABLET PO SCH ×2 (09:45→16:39)
[2019-04-02] MEDS: Multivit/Ca/Min/Fe/FA 1 TAB TABLET PO SCH (09:45)
[2019-04-02] MEDS: Ringers Solution, Lactated 1,000 ML IVC SCH ×2 (10:01→21:19)
[2019-04-02] MEDS: *HR* Buprenorphine HCl 8 MG TAB.SUBL SL SCH (11:46)
[2019-04-03] MEDS: *HR* Heparin 5,000 UNIT/ML VIAL SQ SCH ×2 (05:48→17:51)
[2019-04-03 06:25] LABS: Hematocrit 41.2 % (37.5-50.1); Hemoglobin 13.6 g/dL (12.9-16.9); Mean Corpuscular Hemoglobin 28.7 pg (28.0-33.3); Mean Corpuscular Volume 86.9 fL (83.0-100.0); Mean Platelet Volume 10.9 fL (9.4-12.4); Platelet Count 220 K/mcL (140-400); Red Blood Count 4.74 M/mcL (4.19-5.50); Red Cell Distribution Width 12.5 % (11.5-14.5)
[2019-04-03 06:27] LABS: White Blood Count 10.9 K/mcL (4.3-11.1)
[2019-04-03] MEDS: *HR* Buprenorphine HCl 8 MG TAB.SUBL SL SCH (09:03)
[2019-04-03] MEDS: Ascorbic Acid 500 MG TABLET PO SCH ×2 (09:03→17:50)
[2019-04-03] MEDS: Multivit/Ca/Min/Fe/FA 1 TAB TABLET PO SCH (09:03)
[2019-04-03] MEDS: cefTRIAXone 2,000 MG in Water for inj. (sterile) 20 ML IVP SCH (09:04)
[2019-04-03] MEDS: Nicotine 21 MG PATCH.TD24 TD SCH (09:04)
[2019-04-03] MEDS: Gabapentin 300 MG CAPSULE PO SCH ×3 (09:04→22:28)
[2019-04-03] MEDS: Ringers Solution, Lactated 1,000 ML IVC SCH (17:49)
[2019-04-04] MEDS: Ringers Solution, Lactated 1,000 ML IVC SCH ×2 (00:24→17:34)
[2019-04-04] MEDS: *HR* Heparin 5,000 UNIT/ML VIAL SQ SCH ×2 (05:56→17:33)
[2019-04-04] MEDS: Multivit/Ca/Min/Fe/FA 1 TAB TABLET PO SCH (08:39)
[2019-04-04] MEDS: Nicotine 21 MG PATCH.TD24 TD SCH (08:39)
[2019-04-04] MEDS: Ascorbic Acid 500 MG TABLET PO SCH ×2 (08:40→17:33)
[2019-04-04] MEDS: Gabapentin 300 MG CAPSULE PO SCH ×3 (08:40→20:22)
[2019-04-04] MEDS: *HR* Buprenorphine HCl 8 MG TAB.SUBL SL SCH (08:40)
[2019-04-04] MEDS: cefTRIAXone 2,000 MG in Water for inj. (sterile) 20 ML IVP SCH (17:34)
[2019-04-04] MEDS: Ketorolac 15 MG/ML VIAL IVP PRN (20:22)
[2019-04-04] MEDS ORDERED: Nicotine 2 MG GUM BC PRN (20:32)
[2019-04-05] MEDS: *HR* Heparin 5,000 UNIT/ML VIAL SQ SCH (06:01)
[2019-04-05] MEDS: Multivit/Ca/Min/Fe/FA 1 TAB TABLET PO SCH (08:58)
[2019-04-05] MEDS: Ascorbic Acid 500 MG TABLET PO SCH (08:58)
[2019-04-05] MEDS: cefTRIAXone 2,000 MG in Water for inj. (sterile) 20 ML IVP SCH (08:58)
[2019-04-05] MEDS: *HR* Buprenorphine HCl 8 MG TAB.SUBL SL SCH (08:58)
[2019-04-05] MEDS: Gabapentin 300 MG CAPSULE PO SCH (08:58)
[2019-04-05 11:22] VITALS: BP 104/71
== END 2019-04-05 14:31 | DRG 313 ==
LOC: EMEROOARM 14:07 → 3BNU 14:07 → SUATTDRO 18:37 → 3BNU 19:30
PROVIDERS: ADMIT Internal Medicine; ATTEND Family Medicine